=== PATIENT | female | born 1975 | race Caucasian/White ===

== ENCOUNTER 2022-05-18 19:33 | Emergency (ER) | payer MEDICAID ==
[~2022-05-18] VITALS: Ht 167.6 cm; Wt 83.0 kg
[2022-05-18 19:47] VITALS: BP 152/97
== END 2022-05-18 20:13 | disposition left against medical advice (07) ==
LOC: ER 19:33
DX: R07.89 Other chest pain (principal); Z53.21 Procedure and treatment not carried out due to patient leaving prior to being seen by health care provider
CPT/HCPCS: 93005